=== PATIENT | female | born 1925 | race Caucasian/White ===

== ENCOUNTER 2017-02-25 10:21 | Inpatient (IN) | payer MEDICARE, OTHER ==
--- NOTE | ~2017-02-25 | OP ---
Record Of Operation [facility] [address] [facility] [place] [id number] NAME: KAYLEN CORTES : [birth year] STATUS : ADM IN [facility]#: [id number] AGE: 89 ADM/REG DATE : 02/25/17 MR#: [id number] REPORT SERV DATE: 02/26/17 DICTATED BY: MONTY MCDERMOTT DATE: 02/26/17 REPORT STATUS : Draft TRANSCRIBED BY: MODWilmer DATE: 02/26/17 DATE OF PROCEDURE: 02/26/2017 PRIMARY BEND UP: Panda Walden M.D. REASON FOR PROCEDURE: Atrial fib with RVR. PROCEDURE DESCRIPTION: All questions were answered and informed consent was obtained. The patient was sedated per Anesthesia. Upon successful sedation, the patient was shocked with a synchronized cardioversion at 200 joules x1, with successful conversion to sinus rhythm at 90 beats per minute. There were no complications from the procedure. The patient was recovered by Anesthesia. NAVID/WILLIAM Monty Mcdermott MD / [id number] CC: MD Ayse Cline MD
--- NOTE | ~2017-02-25 | DS ---
Discharge Summary [facility] [address] [place]. [address] NAME: KAYLEN CORTES : [birth year] STATUS : DIS IN PAT#: [id number] AGE: 89 ADM/REG DATE : 02/25/17 MR#: [id number] REPORT SERV DATE: 03/01/17 DICTATED BY: GUNNAR CHEEK DATE: 02/28/17 REPORT STATUS : Draft TRANSCRIBED BY: MODL DATE: 02/28/17 ADMISSION DATE: 02/25/2017 DISCHARGE DATE: 02/28/2017 The patient is an 89-year-old female with a history of diabetes type 2, hypertension, hypothyroidism, coronary artery disease status post stent placement who presented to the hospital with complaint of shortness of breath. For further details, please refer to H and P dictated by Dr. Alejandro on 02/25/2017. HOSPITAL COURSE: Upon admission, presentation to the emergency room, preliminary workup noted that patient was in decompensated heart failure. Also, clinically patient was volume overloaded, and her EKG noted that patient was in atrial fibrillation with RVR. The patient was therefore subsequently admitted to the hospital under hospitalist service. Given her findings in the emergency room, Cardiology was subsequently consulted to assist in management. Please refer to cardiology consultation note dictated by Dr. Bhagat, on 02/25/2017. During her hospital course, the patient was followed by Cardiology for her atrial fibrillation with RVR. The patient was taken to the cardiology suite where cardioversion was performed by Dr. Bhagat. Please refer to operative note dictated by Dr. Bhagat on 02/26/2017. Status post cardioversion, the patient remained in sinus rhythm on the 02/26/2017 and 02/27/2017, however, this morning the morning of 02/28/2017, the patient reconverted back to atrial fibrillation. On exam, the patient remained hemodynamically stable and her rate is controlled. For her decompensated heart failure, the patient was managed with IV diuretics with subsequent resolution of her hypervolemia. The patient also was noted to have LAXMI likely due to over- diuresis. She was given very gentle fluid repletion with eventual correction of her acute kidney injury, and her creatinine is back to baseline. Given her hemodynamic stability and completion of workup, the patient will be discharged home today to follow up with her primary care doctor and Cardiology as outpatient. Plan has been discussed with the patient who voices understanding and is agreeable with this plan. DISCHARGE EXAMINATION: VITAL SIGNS: Blood pressure 116/54 with a pulse of 90, respiration 19, O2 saturation 93% on room air. GENERAL: The patient lying in bed, in no acute distress. Speaking in full sentences with normal respiratory effort. HEENT: Normocephalic, atraumatic. Extraocular motors intact. Pupils are round and reactive to light and accommodation. NECK: Trachea midline and symmetric. No JVD noted. No thyromegaly present. CHEST: Nontender to palpation. No scars noted. CARDIOVASCULAR: Irregularly irregular rate and rhythm. LUNGS: Clear to auscultation bilaterally. ABDOMEN: Obese positive bowel sounds. Nontender. Nondistended. EXTREMITIES: No cyanosis, no clubbing, no edema. NEUROLOGIC: Alert and oriented x3. No focal deficits appreciated. Discharge Summary [address] [address] NAME: KAYLEN CORTES : [birth year] STATUS : DIS IN PAT#: [id number] AGE: 89 ADM/REG DATE : 02/25/17 MR#: [id number] REPORT SERV DATE: 03/01/17 DICTATED BY: GUNNAR CHEEK DATE: 02/28/17 REPORT STATUS : Draft TRANSCRIBED BY: WILLIAM DATE: 02/28/17 DISCHARGE MEDICATIONS: Eliquis 5 mg p.o. daily, atorvastatin 40 mg p.o. daily, aspirin 81 mg p.o. daily, carvedilol 12.5 mg p.o. daily, Synthroid 100 mcg p.o. daily, pantoprazole 40 mg p.o. daily, Lasix 20 mg p.o. daily, meclizine 12.5 mg p.o. p.r.n., potassium chloride 20 mEq p.o. daily, B complex one tab p.o. daily, vitamin C 500 mg p.o. twice a day. DISPOSITION: The patient will be discharged home. ACTIVITY: As tolerated. DIET: Cardiac diet. Greater than 30 minutes was spent on discharge planning, prescription medication reconciliation, dictation of note. MESERET Gunnar Cheek MD / [id number] CC: MD Ayse Cline MD
--- NOTE | ~2017-02-25 | CN ---
Consultation Report [facility] [address] [place]. [address] NAME: KAYLEN WALTON : [birth year] STATUS : ADM IN PAT#: [id number] AGE: 89 ADM/REG DATE : 02/25/17 MR#: [id number] REPORT SERV DATE: 02/25/17 DICTATED BY: MONTY MCDERMOTT DATE: 02/25/17 REPORT STATUS : Draft TRANSCRIBED BY: MODWilmer DATE: 02/25/17 DATE OF CONSULTATION: 02/25/2017 PRIMARY EMPLOYEE RELATIONS DIRECTOR: Dr. Panda Walden. REASON FOR CONSULTATION: Decompensated heart failure, atrial fibrillation with RVR. HISTORY OF PRESENT ILLNESS: Ms. Walton is a very pleasant 89-year-old female, well-known to Dr. Panda Walden with a history of CAD, status post drug-eluting stent to the RCA (November 2015), hypertension, hyperlipidemia, ischemic cardiomyopathy (LVEF=35% on most recent echocardiogram), and paroxysmal atrial fibrillation, on Eliquis, who presents today with complaints of progressive dyspnea as well as dyspnea on exertion and weight gain over the past several weeks. She states she had been in her usual state of health up until several weeks ago, when she noticed that she has had decreased stamina in general. She has had difficulty completing her day-to-day activities. She has had symptoms of intermittent palpitations and heart racing throughout this time. Her palpitations have worsened most recently in addition to her shortness of breath. Collectively, these prompted her to present to [facility] for further evaluation and care today. She states that she has been taking her medications without any issue. She has been taking her Eliquis without a single missed dose over the past six weeks or more at the least. She is 100% certain of this. Notably, she did not use Lasix daily as per her MAR. She has been using that only p.r.n. up until about one to two weeks ago. She otherwise denies having any overt chest pains or pressures at this point in time. She denies having any productive cough, fevers, chills, dizziness, or loss of consciousness. ALLERGIES: SEVERAL LISTED IN THE CHART, INCLUDING OPIOIDS, CEPHALOSPORINS, SULFAS, QUINOLONES, MORPHINE, CODEINE, CEPHALEXIN, DOXYCYCLINE, OFLOXACIN, AND MEPERIDINE. PAST MEDICAL HISTORY: As above. SOCIAL HISTORY: The patient lives with her at home and is fully independent under normal circumstances. She denies drinking alcohol, smoking, or doing drugs. FAMILY HISTORY: Significant for heart disease in her father. REVIEW OF SYSTEMS: As above, all other systems otherwise negative. HOME MEDICATIONS: 1. Eliquis 5 mg p.o. b.i.d. 2. Vitamin C. 3. Lipitor 40 mg p.o. q.h.s. 4. Vitamin B. 5. Coreg 12.5 mg p.o. b.i.d. 6. Plavix 75 mg p.o. daily (the patient had stopped this when seen Dr. Walden in December, Consultation Report [address] [place]. [address] NAME: KAYLEN WALTON : [birth year] STATUS : ADM IN [facility]#: [id number] AGE: 89 ADM/REG DATE : 02/25/17 MR#: [id number] REPORT SERV DATE: 02/25/17 DICTATED BY: MONTY MCDERMOTT DATE: 02/25/17 REPORT STATUS : Draft TRANSCRIBED BY: WILLIAM DATE: 02/25/17 but restarted it given that she preferred so). 7. Lasix 20 mg daily. 8. Synthroid. 9. Meclizine. 10.Pantoprazole. 11.Klor-Con. PHYSICAL EXAMINATION: VITAL SIGNS: Her blood pressure is 139/89, pulse around 100 (atrial fibrillation), temperature 97.6. GENERAL: Obese, well developed, well nourished, in no acute distress, conversant. NEURO: Awake, alert and oriented x3; no focal deficits, appropriate mood. HEENT: Moist mucous membranes. Elevated JVP to about 10-12 cm of water. NECK: No JVD, no carotid bruit. LUNGS: Increased work of breathing with rales bilaterally to the mid lung. CV: Irregularly irregular. Normal S1 and S2. No murmurs, rubs, or gallops. ABD: Soft, nontender, nondistended, no rebound or guarding. EXT: Trace to 1+ edema in her lower extremities bilaterally, with 1+ pulses in the bilateral lower and upper extremities/decreased pulse pressure throughout. SKIN: Warm, dry and intact; no rash. PERTINENT TEST FINDINGS: Chest x-ray with moderate pulmonary edema. White blood cell count 5.2, hemoglobin 10.7, platelets 112, creatinine 1.36, potassium 4.6, magnesium 1.9. Troponin less than 0.02. BNP 572. EKG completed this morning with admission demonstrates atrial fibrillation with a rapid ventricular rate (110 beats per minute.), isolated PVC, and no ischemic changes. IMPRESSION AND PLAN: Ms. Walton is a very pleasant 89-year-old female with a history of ischemic cardiomyopathy (ejection fraction 35%); paroxysmal atrial fibrillation, on Eliquis; typically in sinus rhythm; and coronary artery disease, status post drug-eluting stent to the RCA last year November, who presents today with symptoms of progressive dyspnea on exertion, weight gain, and palpitations in the setting of decompensated heart failure and atrial fibrillation with rapid ventricular response. Accordingly, I have the following recommendations by problem below: 1. Decompensated heart failure-IV diuresis as you are doing. Continue heart failure regimen and addition of other pertinent medicines as tolerated/when kidney injury improves. Otherwise fluid and salt restriction, congestive heart failure education, and daily weights. It will also be helpful to check an echocardiogram at this point in time. 2. Atrial fibrillation with kidney injury-she has a history of paroxysmal atrial fibrillation, however, is typically in sinus rhythm. I suspect that this may very well be why she is feeling poorly. She has had palpitations on and off over the past several weeks. It will be helpful to cardiovert her. I spoke with her at length about this procedure and she is amenable with proceeding. I will schedule her for a DC cardioversion only tomorrow. She is 100% certain that she has been on Eliquis 5 mg Consultation Report [address] [place]. [address] NAME: KAYLEN WALTON : [birth year] STATUS : ADM IN PAT#: [id number] AGE: 89 ADM/REG DATE : 02/25/17 MR#: [id number] REPORT SERV DATE: 02/25/17 DICTATED BY: MONTY MCDERMOTT DATE: 02/25/17 REPORT STATUS : Draft TRANSCRIBED BY: WILLIAM DATE: 02/25/17 p.o. b.i.d. without any interruption over the past many weeks (at least six weeks if not longer). Therefore, it will be fine to forego transesophageal echocardiogram for appendage clearance at this time. 3. Acute kidney injury-I suspect that this will improve with above measures. 4. History of coronary artery disease status post percutaneous coronary intervention- without ischemic changes on EKG and initial troponin is negative. She also has not complained of angina at this point in time. VR/MODL Monty Mcdermott MD / [id number] CC: MD Ayse Cline MD
--- NOTE | ~2017-02-25 | HP ---
History And Physical [place] [id number] [facility] [place]. [address] NAME: KAYLEN CORTES : [birth year] STATUS : ADM IN [facility]#: [id number] AGE: 89 ADM/REG DATE : 02/25/17 MR#: [id number] REPORT SERV DATE: 02/25/17 DICTATED BY: LUIS ALEJANDRO DATE: 02/25/17 REPORT STATUS : Draft TRANSCRIBED BY: WILLIAM DATE: 02/25/17 DATE OF ADMISSION: 02/25/2017 CHIEF COMPLAINT: Shortness of breath. HISTORY OF PRESENT ILLNESS: The patient is a very pleasant, 89-year-old white female, I last saw her in 11/2015. In the ER, she had some bright red blood per rectum and just had a drug eluting stent. The patient reports over the last week, she has had increasing shortness of breath, worse with exertion, and also some chest pressure. She states she had a slight cough, but no fever, no sputum. She has had some lower extremity edema and about a three- pound weight gain. She notes that her shortness of breath has become so increased that she needed to seek care today. She denies abdominal pain. Denies diarrhea. Denies nausea or vomiting, although when she gets dyspneic she does have some nausea that subsequently resolved. She has had symptoms now for a week, which seemed to be escalating and not improving. None of her medications have changed recently. She sees Dr. Walden as an outpatient. PAST MEDICAL HISTORY: 1. CAD with drug-eluting stent 11/2015. 2. Ischemic cardiomyopathy, last EF measured at 36% in 11/2015. 3. Diabetes mellitus, diet controlled. 4. Hypertension. 5. Previous urinary tract infection. 6. Hypothyroidism. 7. Meniere's. 8. Anemia. 9. Atherosclerosis of the abdominal aorta. 10.Atrial fibrillation, on chronic Eliquis. 11.Obesity. 12.Urinary incontinence. 13.CKD with baseline creatinine around 1.3 to 1.5. SOCIAL HISTORY: She is . No tobacco or alcohol use. She lives with her , and she is fairly independent. FAMILY HISTORY: Negative for any premature coronary disease. PAST SURGICAL HISTORY: She has had: 1. Knee replacement. 2. Cataract surgery. 3. Hysterectomy and oophorectomy. HOME MEDICATIONS: Reviewed and attached from the MAR. REVIEW OF SYSTEMS: Full 10-point review of systems obtained with pertinent positives mentioned in the HPI. History And Physical [address] [address] NAME: KAYLEN CORTES : [birth year] STATUS : ADM IN PAT#: [id number] AGE: 89 ADM/REG DATE : 02/25/17 MR#: [id number] REPORT SERV DATE: 02/25/17 DICTATED BY: LUIS ALEJANDRO DATE: 02/25/17 REPORT STATUS : Draft TRANSCRIBED BY: WILLIAM DATE: 02/25/17 PHYSICAL EXAMINATION: VITAL SIGNS: BP 118/67, temperature 97.6, pulse 90, respiratory rate 19, sats are 98% on 3 L. GENERAL: Well-developed white female, in no obvious distress. HEENT: Normocephalic, atraumatic. Throat is clear. NECK: Supple. HEART: Heart rate is irregularly irregular. LUNGS: She has crackles about 1/3 of each lung field. ABDOMEN: Soft, nontender, and nondistended. EXTREMITIES: Warm and dry. She has 2+ pitting edema in the left leg, 1+ in the right, pulses are 2+ at the feet. SKIN: Intact without rash or lesion. LABORATORY AND X-RAY: Chest x-ray shows evidence of pulmonary edema. CBC: H and H are 10.7 and 32.9, white count 5.2, platelets 112. INR is 2. Sodium is 138, potassium 4.6, chloride 105, CO2 23, BUN and creatinine 34 and 1.36, glucose 113, troponin 0.02, mag 1.9. BNP is 572. EKG showed atrial fibrillation with pulse around 100, but no acute ST-T wave changes. ASSESSMENT/PLAN: 1. Congestive heart failure exacerbation with history of ischemic cardiomyopathy. We will diurese with Lasix. Continue her Coreg. I am going to avoid an BOUCHRA because she has chronic kidney disease. We are going to diurese her. We will monitor in's and out's, daily weights, place her on a tele bed. We will attempt to continue rate control with beta alber for her atrial fibrillation. We will repeat her echo it has been a bit since she has had an echo. I would be interested to see what her EF has done since she got the drug-eluting stent placed. 2. Chest pressure. She has had pressure for a week. I wonder if she is really more describing tightness or dyspnea related to ongoing CHF. She has no new EKG changes. Her troponin is negative. Initially, she is already anticoagulated with Eliquis. We will continue her aspirin as well as her beta alber. We will do two more sets of enzymes. Again follow up on her echo. [facility] is going to see her in consultation. 3. History of diet-controlled diabetes. 4. History of anemia, chronic and stable at baseline. 5. Chronic kidney disease, stable and at baseline. 6. Atrial fibrillation, on chronic Eliquis. Currently rates about 100. She may need additional beta alber. We will see how she does after some diuresis. 7. Obesity. 8. Deep venous thrombosis prophylaxis, already fully anticoagulated. 9. Disposition pending above. BIANCA/WILLIAM Luis Alejandro M.D. History And Physical [address] [address] NAME: KAYLEN CORTES : [birth year] STATUS : ADM IN [facility]#: [id number] AGE: 89 ADM/REG DATE : 02/25/17 MR#: [id number] REPORT SERV DATE: 02/25/17 DICTATED BY: LUIS ALEJANDRO DATE: 02/25/17 REPORT STATUS : Draft TRANSCRIBED BY: WILLIAM DATE: 02/25/17 / [id number] CC: MD Ayse Cline MD Mark Thel, M.D.
[~2017-02-25 10:21] MED LIST: APRES25 PO; ATEN25 PO; B121000P IM; CEFT5 PO; CIP2 PO; CIP5 PO; COREG12 PO; COREG25 PO; COZ50 PO; CRANBERRY EXTRACT PO; CRANBERRY1 TAB PO; D MANNOSE 500 MG PO; ELIQUIS 5 MG TAB5 MG PO; GARLIC 1000MG OTC PO; HYZAAR 50/12.51 TAB PO; INJECTION IM; KLOR-CON M2020 MEQ PO; KLOR-CON20 MEQ PO; L40 PO; LEVOTHYROXIN100 MCG PO; LEVSINTAB PO/SL; LIPITOR40 PO; LOP25 PO; MCZ125 PO; MUCINEX600 MG PO; PLAVIX PO; PRIN10 PO; PROBIOTIC OTC PO; PROTONIX PO; SINUS MEDICATION PO; SYN1 PO; TORA60 IM; ULTRAM50 PO; V-R VIT B-6100 MG PO; VITC500 PO; VOLT75 PO; ZOFRAN ODT4 MG PO; ZOFRAN4 PO; [UNRECOGNIZED DRUG - OTHER] IJ; [UNRECOGNIZED DRUG - REMARK] PO
[2017-02-25 10:47] LABS: BASOPHILS 0.2 %; BASOPHILS ABSOLUTE 0.01 10/3/uL (0.0-0.16); EOSINOPHILS 0.6 %; EOSINOPHILS ABSOLUTE 0.03 10/3/uL (0.0-0.53); ER CBC TAT 0 Hrs 05 Mins; HEMATOCRIT 32.9 % (36.0-48.0); HEMOGLOBIN 10.7 g/dL (12.0-16.0); IMMATURE GRANULOCYTES 0.2 %; IMMATURE GRANULOCYTES ABSOLUTE 0.01 10/3/uL (0.0-0.11); LYMPHOCYTES ABSOLUTE 0.93 10/3/uL (0.67-4.30); MEAN CORPUS HGB CONC 32.5 g/dL (32.0-36.0); MEAN CORPUSCULAR HEMOGLOB 27.4 pg (26.0-34.0); MEAN CORPUSCULAR VOLUME 84.4 fL (80-100); MEAN PLATELET VOLUME 12.2 fL (9.2-13.0); MONOCYTES 9.7 %; NEUTROPHILS 71.3 %; NEUTROPHILS ABSOLUTE 3.68 10/3/uL (2.02-8.40); PLATELET COUNT 112 10/3/uL (150-400); RBC DISTRIBUTION WIDTH 14.8 % (12.0-16.0); WHITE BLOOD CELLS 5.2 10/3/uL (4.5-10.5)
[2017-02-25 10:48] LABS: MANUAL DIFF NO %
[2017-02-25 10:55] LABS: PARTIAL THROMBO TIME 40.2 SEC (22.5-37.2)
[2017-02-25 10:56] LABS: PROTIME (NOT ORD) 22.8 SEC (12.0-14.5)
[2017-02-25 11:02] LABS: BUN (BLOOD UREA NITROGEN) 34 MG/DL (6-23); CALCIUM, SERUM 8.9 MG/DL (8.5-10.4); CHEST PAIN PROFILE TAT 0 Hrs 20 Mins; CHLORIDE, SERUM 105 MMOL/L (96-112); CO2 (CARBON DIOXIDE) 23 MMOL/L (24-34); CREATININE 1.36 MG/DL (0.55-1.02); GFR AFRICAN AMERICAN 40 ML/MIN (>=60); GFR NON AFRICAN AMERICAN 34 ML/MIN (>=60); POTASSIUM, SERUM 4.6 MMOL/L (3.5-5.3); SODIUM, SERUM 138 MMOL/L (135-148); TROPONIN I <0.02 NG/ML (<0.05)
[2017-02-25 11:03] LABS: GLUCOSE, SERUM 113 MG/DL (60-99)
[2017-02-25] MEDS ORDERED: COREG12 PO (11:15)
[2017-02-25] MEDS ORDERED: LIPITOR40 PO (11:15)
[2017-02-25] MEDS ORDERED: ELIQUIS 5 MG TAB5 MG PO (11:16)
[2017-02-25] MEDS ORDERED: LEVOTHYROXIN100 MCG PO (11:16)
[2017-02-25] MEDS ORDERED: L20 PO (11:16)
[2017-02-25] MEDS ORDERED: MCZ125 PO (11:17)
[2017-02-25] MEDS ORDERED: PROTONIX PO (11:18)
[2017-02-25] MEDS ORDERED: KLOR-CON M2020 MEQ PO (11:19)
[2017-02-25] MEDS ORDERED: PLAVIX PO (11:19)
[2017-02-25] MEDS ORDERED: SUPER B COMP PO (11:19)
[2017-02-25] MEDS ORDERED: VITC500 PO (11:19)
[2017-02-26 03:25] LABS: HEMATOCRIT 32.5 % (36.0-48.0); HEMOGLOBIN 10.3 g/dL (12.0-16.0); MANUAL DIFF YES %; MEAN CORPUS HGB CONC 31.7 g/dL (32.0-36.0); MEAN CORPUSCULAR VOLUME 85.3 fL (80-100); MEAN PLATELET VOLUME 11.7 fL (9.2-13.0); PLATELET COUNT 125 10/3/uL (150-400); RBC DISTRIBUTION WIDTH 14.6 % (12.0-16.0); RED CELL COUNT 3.81 10/6/uL (4.0-5.6); WHITE BLOOD CELLS 4.9 10/3/uL (4.5-10.5)
[2017-02-26 03:33] LABS: INTERNATIONAL NORMAL RATI 1.6 UNITS (-)
[2017-02-26 03:42] LABS: BAND NEUTROPHILS 1 %; IMMATURE GRANS ABSOLUTE (CALC) 0.05 10/3/uL (0.0-0.11); LYMPHOCYTES 22 %; LYMPHOCYTES ABSOLUTE (CALC) 1.08 10/3/uL (0.67-4.30); MONOCYTES 8 %; MONOCYTES ABSOLUTE (CALC) 0.39 10/3/uL (0.21-1.20); MYELOCYTES 1 %; NEUTROPHILS ABSOLUTE (CALC) 3.38 10/3/uL (2.02-8.40); SEGMENTED NEUTROPHIL (0) 68 %; TOTAL NUCLEATED CELLS 100
[2017-02-26 03:44] LABS: RBC MORPHOLOGY NORM (NORMAL)
[2017-02-26 03:48] LABS: BUN (BLOOD UREA NITROGEN) 35 MG/DL (6-23); CALCIUM, SERUM 9.2 MG/DL (8.5-10.4); CHLORIDE, SERUM 102 MMOL/L (96-112); CO2 (CARBON DIOXIDE) 27 MMOL/L (24-34); CREATININE 1.38 MG/DL (0.55-1.02); GFR AFRICAN AMERICAN 39 ML/MIN (>=60); GFR NON AFRICAN AMERICAN 34 ML/MIN (>=60); GLUCOSE, SERUM 102 MG/DL (60-99); POTASSIUM, SERUM 4.5 MMOL/L (3.5-5.3); SODIUM, SERUM 138 MMOL/L (135-148); TROPONIN I <0.02 NG/ML (<0.05)
[2017-02-26 03:59] LABS: PROTIME (NOT ORD) 19.2 SEC (12.0-14.5)
[2017-02-26 23:58] LABS: POTASSIUM, SERUM 3.9 MMOL/L (3.5-5.3)
[2017-02-27 05:20] LABS: BASOPHILS 0.2 %; BASOPHILS ABSOLUTE 0.01 10/3/uL (0.0-0.16); EOSINOPHILS 1.6 %; EOSINOPHILS ABSOLUTE 0.08 10/3/uL (0.0-0.53); HEMATOCRIT 30.9 % (36.0-48.0); HEMOGLOBIN 10.1 g/dL (12.0-16.0); IMMATURE GRANULOCYTES 0.2 %; IMMATURE GRANULOCYTES ABSOLUTE 0.01 10/3/uL (0.0-0.11); LYMPHOCYTES 22.1 %; LYMPHOCYTES ABSOLUTE 1.11 10/3/uL (0.67-4.30); MEAN CORPUS HGB CONC 32.7 g/dL (32.0-36.0); MEAN CORPUSCULAR HEMOGLOB 27.3 pg (26.0-34.0); MEAN CORPUSCULAR VOLUME 83.5 fL (80-100); MEAN PLATELET VOLUME 12.1 fL (9.2-13.0); MONOCYTES 17.3 %; MONOCYTES ABSOLUTE 0.87 10/3/uL (0.21-1.20); NEUTROPHILS 58.6 %; NEUTROPHILS ABSOLUTE 2.95 10/3/uL (2.02-8.40); PLATELET COUNT 119 10/3/uL (150-400); RBC DISTRIBUTION WIDTH 14.7 % (12.0-16.0)
[2017-02-27 05:23] LABS: MANUAL DIFF NO %
[2017-02-27 05:40] LABS: ALBUMIN 3.7 G/DL (3.5-5.0); ALKALINE PHOSPHATASE 71 U/L (45-117); CALCIUM, SERUM 8.5 MG/DL (8.5-10.4); CHLORIDE, SERUM 96 MMOL/L (96-112); CO2 (CARBON DIOXIDE) 28 MMOL/L (24-34); CREATININE 1.63 MG/DL (0.55-1.02); GFR AFRICAN AMERICAN 32 ML/MIN (>=60); GFR NON AFRICAN AMERICAN 28 ML/MIN (>=60); GLUCOSE, SERUM 103 MG/DL (60-99); POTASSIUM, SERUM 3.7 MMOL/L (3.5-5.3); SGOT(AST) 17 U/L (5-40); SGPT(ALT) 18 U/L (5-65); SODIUM, SERUM 135 MMOL/L (135-148); TOTAL PROTEIN 6.6 G/DL (6.0-8.5)
[2017-02-27 05:42] LABS: A/G RATIO 1.3 (0.7-1.9); BUN (BLOOD UREA NITROGEN) 42 MG/DL (6-23); GLOBULIN 2.9 G/DL (2.5-4.1); TOTAL BILIRUBIN 1.6 MG/DL (0-1.2)
[2017-02-28 07:41] LABS: BASOPHILS 0.2 %; BASOPHILS ABSOLUTE 0.01 10/3/uL (0.0-0.16); EOSINOPHILS 1.3 %; EOSINOPHILS ABSOLUTE 0.06 10/3/uL (0.0-0.53); HEMATOCRIT 32.1 % (36.0-48.0); HEMOGLOBIN 10.6 g/dL (12.0-16.0); LYMPHOCYTES 25.4 %; LYMPHOCYTES ABSOLUTE 1.21 10/3/uL (0.67-4.30); MEAN CORPUSCULAR HEMOGLOB 27.3 pg (26.0-34.0); MEAN CORPUSCULAR VOLUME 82.7 fL (80-100); MEAN PLATELET VOLUME 12.2 fL (9.2-13.0); MONOCYTES 17.2 %; MONOCYTES ABSOLUTE 0.82 10/3/uL (0.21-1.20); NEUTROPHILS 55.9 %; NEUTROPHILS ABSOLUTE 2.67 10/3/uL (2.02-8.40); PLATELET COUNT 126 10/3/uL (150-400); RBC DISTRIBUTION WIDTH 14.6 % (12.0-16.0); RED CELL COUNT 3.88 10/6/uL (4.0-5.6); WHITE BLOOD CELLS 4.8 10/3/uL (4.5-10.5)
[2017-02-28 07:42] LABS: MANUAL DIFF NO %
[2017-02-28 07:53] LABS: A/G RATIO 1.1 (0.7-1.9); ALBUMIN 3.6 G/DL (3.5-5.0); ALKALINE PHOSPHATASE 75 U/L (45-117); CHLORIDE, SERUM 98 MMOL/L (96-112); CO2 (CARBON DIOXIDE) 27 MMOL/L (24-34); CREATININE 1.31 MG/DL (0.55-1.02); GFR AFRICAN AMERICAN 42 ML/MIN (>=60); GFR NON AFRICAN AMERICAN 36 ML/MIN (>=60); GLOBULIN 3.2 G/DL (2.5-4.1); GLUCOSE, SERUM 113 MG/DL (60-99); SGOT(AST) 15 U/L (5-40); SGPT(ALT) 19 U/L (5-65); SODIUM, SERUM 137 MMOL/L (135-148); TOTAL BILIRUBIN 1.2 MG/DL (0-1.2); TOTAL PROTEIN 6.8 G/DL (6.0-8.5)
[2017-02-28 07:57] LABS: BUN (BLOOD UREA NITROGEN) 38 MG/DL (6-23)
[2017-02-28] MEDS ORDERED: ASAB PO (11:28)
[2017-07-13] MEDS ORDERED: L40 PO (11:55)
[2017-07-13] MEDS ORDERED: CORDARONE PO (11:55)
[2017-07-13] MEDS ORDERED: COREG25 PO (11:55)
[2017-07-13] MEDS ORDERED: ZAROX2.5B PO (11:56)
[2017-07-14] MEDS ORDERED: MCZ125 PO (06:56)
== END 2017-02-28 13:38 | disposition home or self-care (01) | DRG 291 ==
LOC: ER 10:21 → 7NO 12:41
PROVIDERS: Emergency Medicine; Hospitalist; Surgery
PROC: 5A2204Z Restoration of Cardiac Rhythm, Single (ICD-10-PCS; principal; 2017-02-26)
DX: I13.0 Hypertensive heart and chronic kidney disease with heart failure and stage 1 through stage 4 chronic kidney disease, or unspecified chronic kidney disease (principal); I50.23 Acute on chronic systolic (congestive) heart failure; N17.9 Acute kidney failure, unspecified; D63.8 Anemia in other chronic diseases classified elsewhere; I48.0 Paroxysmal atrial fibrillation; Z79.01 Long term (current) use of anticoagulants; I25.5 Ischemic cardiomyopathy; Z95.5 Presence of coronary angioplasty implant and graft; N18.3 Chronic kidney disease, stage 3 (moderate); E03.9 Hypothyroidism, unspecified; E66.9 Obesity, unspecified; Z68.32 Body mass index [BMI] 32.0-32.9, adult
CPT/HCPCS: 71010; 80048; 80053; 83735; 83880; 84132; 84484; 85025; 85610; 85730; 92960; 93005; 96374; 99285; A9270-GY; C8929; J1940; Q9957